=== PATIENT | male | born 1960 | race Caucasian/White ===

== ENCOUNTER 2016-03-22 11:51 | Day surgery (SDC) | payer OTHER ==
[2016-03-22] VITALS (8 sets, daily range): BP systolic 106–124; BP diastolic 62–80; PULSE 52–58; RESP 12–18; O2SAT 95–97
[~2016-03-22] VITALS: Ht 188 cm; Wt 104.5 kg
[~2016-03-22 11:51] MED LIST: IBUP800T28 PO; METO100T3 PO; RAMI10CA PO
[2016-03-22] MEDS ORDERED: 0.9% Sodium Chloride 250 ML ONE (12:13)
[2016-03-22] MEDS ORDERED: Bupivacaine-MPF 0.5% 30 mL Inj ONE (12:13)
[2016-03-22] MEDS ORDERED: Heparin 5,000 Units/500 mL NS Premix IV ONE (12:13)
[2016-03-22 12:36] LABS: BASOPHILS % (AUTO) 0.2 % (0-3); EOSINOPHILS % (AUTO) 2.2 % (0-5); MONOCYTES % (AUTO) 6.5 % (4-12); Mean Corpuscular Hemoglobin 30.4 pg (27.0-35.0); Mean Corpuscular Volume 90.2 fL (81-100); NEUTROPHILS % (AUTO) 63.2 % (40-74); Platelet Count 278 bil/L (150-400)
[2016-03-22 12:50] LABS: INR 1.01 ratio
[2016-03-22] MEDS ORDERED: 0.9% Sodium Chloride 1,000 ML ONE (12:56)
[2016-03-22] MEDS ORDERED: Vancomycin 1,000 mg Inj ONE (12:59)
[2016-03-22] MEDS ORDERED: fentaNYL-PF 50 mCg/mL 2 mL Inj ONE ×2 (14:08→14:26)
[2016-03-22] MEDS ORDERED: 0.9% Sodium Chloride 1,000 ML IV SCH (14:53)
[2016-03-22] MEDS ORDERED: HYDROcodone-APAP 5-325 mg Tablet PO PRN (14:55)
[2016-03-22] MEDS ORDERED: Ondansetron 2 mg/mL 2 mL Inj IVPUSH PRN (14:55)
--- NOTE | 2016-03-22 15:31 | OP ---
[address] [address] OPERATIVE REPORT PATIENT: GUILLERMO HOLGUIN : 1960 MR#: [id number] ADMIT: 03/22/2016 JOB ID: [id number] DATE OF SURGERY: 03/22/2016 PREOPERATIVE DIAGNOSIS(ES): Single-chamber primary prevention ICD battery depletion. POSTOPERATIVE DIAGNOSIS(ES): Single-chamber primary prevention ICD battery depletion. PROCEDURES PERFORMED: 1. ICD generator replacement. 2. Fluoroscopy. SURGEON: Severino Chacon MD electrophysiology attending. HEAD PIECE ASSEMBLER: David Yeboah. IMPLANTED DEVICE: [employer] [facility] Pulse model CD 1411-36, serial #[id number]. EXPLANTED DEVICE: [employer] [facility], CD 1207-36, serial #[id number]. CHRONIC DEVICE: [facility] [id number], serial #[id number]. ANESTHESIA: Bolus dosing of Versed and fentanyl were utilized for appropriate level of sedation. INDICATION: The patient is a pleasant 55-year-old man with nonischemic cardiomyopathy and a primary prevention single-chamber ICD in place that has reached [facility]. After discussion of risks and benefits of generator replacement, he opted to proceed. PROCEDURAL DESCRIPTION: Following informed consent, the patient was taken to the EP laboratory in a fasting nonsedated state, where he was prepped in the usual sterile fashion. A fluoroscopic survey of the lead was performed given the fact this is a Ri[employer] lead. No insulation breaches were identified. The right infraclavicular surgical scar was then infiltrated with 30 cc of a 50/50 mixture of bupivacaine and lidocaine. Once adequate anesthesia had been achieved, a 3 cm incision was performed overlying the previous surgical scar. Dissection was carried down to the capsule and lead and generator were freed loose of adhesions. The lead was inspected and showed to be intact. The pocket was copiously irrigated with antibiotic solution. The lead was connected to the external analyzer and demonstrated appropriately sensed R waves, impedance, capture threshold. Lead was checked. The chronic lead was then connected to a new pulse generator which was inserted into the capsule. The incision was closed with running layers of absorbable suture. The wound was dressed with skin adhesive and a small dressing at the end the procedure. The needle, sponge, instrument counts were all correct. COMPLICATIONS: None. ESTIMATED BLOOD LOSS: Negligible. DEVICE MEASURED DATA: 11.9, mV, 400 ohms, 1 V at 1 msec. FINAL PROGRAM PARAMETERS: 1. VVI 40 beats. 2. VF zone at 200 beats per minute with ATP during charge, probably maximum output shocks. 3. VT monitor zone at 150 beats. IMPRESSION: Successful single-chamber ICD generator replacement. PLAN: 1. Recovery and discharge from the [facility]. 2. Doxycycline 100 mg p.o. daily x1 week. 3. Pacemaker Clinic in one week. 4. Followup with [facility] in six weeks. ATTENDING STATEMENT: Severino Chacon MD, electrophysiology attending, was present for and supervised/performed all aspects of this procedure.
[2016-03-22] MEDS ORDERED: TOP100 PO (17:09)
--- NOTE | 2016-03-22 17:37 | NUR ---
[facility] DISCHARGE ASSUMED CARE OF PT AT 1700. BEDREST COMPLETED, DISCHARGE INSTRUCTIONS INCLUDING F/U APPTS, MEDICATIONS, AND POST PACEMAKER CARE, WERE REVIEWED WITH PT AND HE VERBALIZED UNDERSTANDING. RX FOR DOXYCYCLINE WAS FAXED TO [facility] PER PT REQUEST; HARD COPY SENT WITH PT. RIGHT UPPER CHEST PACEMAKER SITE C/D/I. PT WAS DISCHARGED AT 1730 WITH IN STABLE CONDITION.
== END 2016-03-22 23:59 | disposition home or self-care (01) ==
LOC: SOUO 11:51
PROVIDERS: ATTEND Internal Medicine Cardiovascular Disease
DX: Z45.02 Encounter for adjustment and management of automatic implantable cardiac defibrillator (principal); I42.0 Dilated cardiomyopathy; F10.21 Alcohol dependence, in remission; E78.5 Hyperlipidemia, unspecified; I34.0 Nonrheumatic mitral (valve) insufficiency; E11.9 Type 2 diabetes mellitus without complications; I47.2 Ventricular tachycardia
CPT/HCPCS: 33262; 36415; 80048; 85025; 85610; 99152; 99153; C1722; J1644; J2250; J3010; J3370; J7030; J7050